=== PATIENT | male | born 1950 | race Caucasian/White ===

== ENCOUNTER 2018-04-26 23:54 | Emergency (ER) | payer MEDICARE, BC ==
[~2018-04-26] VITALS: Ht 177.8 cm; Wt 86.2 kg
--- NOTE | 2018-04-27 00:05 | NUR ---
PT CAME TO EMERGENCY DEPT. COMPLAINING OF L FLANK PAIN SINCE 2129 LAST NIGHT. PT AMBULATORY WITH STEADY GAIT. PT RESPIRATIONS EVEN AND UNLABORED. PT AXO4. PT STATES LAST TIME HE FELT PAIN LIKE THIS HE HAD A KIDNEY STONE. PT PUT ON THE MONITOR AND PULSE OX.
--- NOTE | 2018-04-27 00:15 | NUR ---
PT UNABLE TO GIVE URINE, ER MD AWARE.
--- NOTE | 2018-04-27 00:15 | NUR ---
SUBACUTE NURSE AT BEDSIDE. LABS SENT.
[2018-04-27] MEDS ORDERED: KETOROLAC TROMETHAMINE INJ 30 MG/ML VIAL ONE (00:20)
[2018-04-27] MEDS ORDERED: ONDANSETRON HCL/PF 4 MG/2 ML VIAL ONE ×2 (00:20→01:12)
[2018-04-27 00:24] LABS: BASOPHILS # (AUTO) 0.1 /CMM (0.0-0.2); BASOPHILS % (AUTO) 0.9 % (0.0-2.0); EOSINOPHILS % (AUTO) 3.9 % (0.0-6.0); HEMATOCRIT 49 % (39-51); HEMOGLOBIN 17.1 g/dL (13.5-17.5); LYMPHOCYTES # (AUTO) 2.2 /CMM (0.8-4.8); LYMPHOCYTES % (AUTO) 20.4 % (20.0-44.0); MEAN CORPUSCULAR HGB CONC 35 g/dl (31.0-36.0); MEAN CORPUSCULAR VOLUME 98 fL (80-96); MONOCYTES # (AUTO) 1.1 /CMM (0.1-1.30); MONOCYTES % (AUTO) 9.7 % (2.0-12.0); NEUTROPHILS % (AUTO) 65.1 % (43.0-81.0); PLATELET COUNT (AUTO) 227 /CMM (150-450); RED BLOOD CELL COUNT(AUTO) 5.04 MIL/uL (4.5-6.0); WHITE BLOOD COUNT (AUTO) 10.8 K/uL (4.3-11.0)
[2018-04-27] MEDS ORDERED: IV NS 0.9% 1,000 ML BAG IV ONE ×2 (00:30→02:00)
[2018-04-27] MEDS ORDERED: ONDANSETRON HCL/PF 4 MG/2 ML VIAL IVP ONE (00:30)
[2018-04-27] MEDS ORDERED: KETOROLAC TROMETHAMINE INJ 30 MG/ML VIAL IV ONE (00:30)
--- NOTE | 2018-04-27 00:45 | NUR ---
PT TAKEN TO CT.
[2018-04-27 00:46] LABS: POTASSIUM 3.7 mmol/L (3.5-5.1)
[2018-04-27 00:47] LABS: CALCIUM, SERUM 8.9 mg/dL (8.5-10.1); TOTAL PROTEIN, SERUM 7.5 g/dL (6.4-8.2)
--- NOTE | 2018-04-27 00:55 | NUR ---
PT RETURNED FROM CT.
[2018-04-27 01:10] LABS: CREATININE 1.3 mg/dL (0.6-1.3)
--- NOTE | 2018-04-27 01:10 | NUR ---
PT STATING PAIN IS COMING BACK. ER MD AWARE. WILL CARRY OUT ORDERS.
[2018-04-27] MEDS ORDERED: MORPHINE SULFATE INJ 4 MG/ML DISP.SYRIN ONE (01:12)
--- NOTE | 2018-04-27 01:15 | NUR ---
PT STATES HE IS STILL UNABLE TO GIVE URINE SAMPLE. Addendum: 04/27/18 at 0118 by CHRISTI SAL OSUNA
[2018-04-27 01:17] LABS: ALBUMIN 3.8 g/dL (3.4-5.0); BILIRUBIN,DIRECT 0.2 mg/dL (0.0-0.2); BILIRUBIN,TOTAL 0.8 mg/dL (0.2-1.0)
--- NOTE | 2018-04-27 01:25 | NUR ---
PT COMPLAINING OF PAIN GETTING WORSE, PT MOANING AND RESTLESS IN BED. PT STATES UNABLE TO GIVE URINE.
[2018-04-27] MEDS ORDERED: ONDANSETRON HCL/PF 4 MG/2 ML VIAL IV ONE (01:30)
[2018-04-27] MEDS ORDERED: MORPHINE SULFATE INJ 2 MG/ML DISP.SYRIN IV ONE (01:30)
--- NOTE | 2018-04-27 01:40 | NUR ---
Patient is resting comfortably in bed with eyes closed. Easily aroused. VSS
--- NOTE | 2018-04-27 02:08 | NUR ---
URINE SAMPLE OBTAINED. URINE SENT TO LAB.
[2018-04-27 02:16] LABS: APPEARANCE,URINE CLEAR (CLEAR); BILIRUBIN,URINE NEGATIVE (NEGATIVE); BLOOD, URINE 3+ Ery/uL (NEGATIVE); COLOR,URINE YELLOW (YELLOW); KETONES,URINE NEGATIVE (NEGATIVE); LEUKOCYTE ESTERASE ,URINE NEGATIVE (NEGATIVE); NITRITE, URINE NEGATIVE (NEGATIVE); PH,URINE 5.5 (5.0-8.0); PROTEIN,URINE 1+ mg/dl (NEGATIVE); UGLUCOSE NEGATIVE (NEGATIVE); UROBILINOGEN,URINE 0.2 EU/dL (0.2)
[2018-04-27 02:36] LABS: RBC,URINE 81-100 /HPF (0-2)
[2018-04-27 02:37] LABS: BACTERIA,URINE None seen /HPF (None Seen); MUCUS,URINE Moderate /LPF (None Seen); SQUAMOUS EPITHELIAL CELL,UR Moderate /HPF (None Seen)
--- NOTE | 2018-04-27 02:45 | NUR ---
Patient discharged to home in stable condition. Written and verbal after care instructions given. Patient verbalizes understanding of instruction. IV removed. Catheter intact and site benign. Pressure and 4x4 applied to site. No bleeding noted.
[2018-04-27 02:46] VITALS: BP 132/80
== END 2018-04-27 02:47 | disposition home or self-care (01) ==
LOC: ER 23:56
DX: N20.0 Calculus of kidney (principal); I10 Essential (primary) hypertension; I25.10 Atherosclerotic heart disease of native coronary artery without angina pectoris; Z60.2 Problems related to living alone
CPT/HCPCS: 36415; 80048-TC; 80076-TC; 81000-TC; 85025-TC; J1885; J2270; J2405; J7030